=== PATIENT | male | born 1945 | race Caucasian/White ===

== ENCOUNTER 2022-02-04 13:56 | Emergency (ER) | payer MEDICARE, SELFPAY ==
[2022-02-04 14:21] VITALS: PULSE 68; RESP 18; TEMP 36.8; O2SAT 93
--- NOTE | 2022-02-04 18:20 | CTR_ITS ---
PROCEDURE INFORMATION: Exam: CT Abdomen And Pelvis With Contrast Exam date and time: 02/04/2022 7:14 PM Age: 76 years old Clinical indication: Constipation and fever; Additional info: Abd pain TECHNIQUE: Imaging protocol: Computed tomography of the abdomen and pelvis with contrast. Radiation optimization: All CT scans at this facility use at least one of these dose optimization techniques: automated exposure control; mA and/or kV adjustment per patient size (includes targeted exams where dose is matched to clinical indication); or iterative reconstruction. Contrast material: OMNI 350; Contrast volume: 94 ml; Contrast route: INTRAVENOUS (IV); COMPARISON: No relevant prior studies available. RADIATION DOSE METRICS: Total DLP (mGy-cm): 1206.93 FINDINGS: Liver: There are cysts with benign features in the liver the larger of which measures 6 mm in the left hepatic lobe. Follow-up is not necessary. Gallbladder and bile ducts: Normal. No calcified stones. No ductal dilation. Pancreas: Normal. No ductal dilation. Spleen: Normal. No splenomegaly. Adrenal glands: There is a 15 mm focal hypodense mass in the right adrenal gland, consistent in appearance and density with a benign adrenal adenoma. Kidneys and ureters: There are cysts with benign features in the kidneys the larger of which measures 2.9 cm in the left kidney. Stomach and bowel: Moderate stool burden.There are air-fluid levels in the distal colon suggesting mild nonspecific colitis versus other diarrheal illness. Appendix: No evidence of appendicitis. Intraperitoneal space: Unremarkable. No free air. No significant fluid collection. Vasculature: There is scattered atherosclerotic plaque in the aorta and iliac arteries. Lymph nodes: Unremarkable. No enlarged lymph nodes. Urinary bladder: The bladder is partially obscured by artifact. Reproductive: Prostate region is obscured by artifact. Bones/joints: Bilateral total hip replacements. There is resultant beam hardening artifact obscuring adjacent structures. Soft tissues: Unremarkable. CT/CT abdomen pelvis w con* [id number] IMPRESSION: Moderate stool burden.There are air-fluid levels in the distal colon suggesting mild nonspecific colitis versus other diarrheal illness.
[2022-02-04 18:22] LABS: Basophils % 0.3 %; Eosinophils % 0.2 %; Hematocrit 44.5 % (42.0-52.0); Hemoglobin 15.4 g/dL (11.7-16.6); Lymphocytes # 1.3 10^3/uL (0.8-4.8); Lymphocytes % 13.8 %; Mean Corpuscular HGB Conc 34.6 g/dL (30.0-36.0); Mean Corpuscular Hemoglobin 32.8 pg (28.0-34.0); Mean Corpuscular Volume 94.7 fl (80-94); Mean Platelet Volume 9.2 fL (7.4-10.4); Monocytes # 0.7 10^3/uL (0.2-0.9); Monocytes % 7.4 %; Neutrophils # 7.04 10^3/uL (1.8-7.7); Neutrophils % 77.7 %; Nucleated Red Blood Cells % 0 %; Platelet Count 192 10^3/cmm (130-400); Red Cell Distribution Width 12.7 % (12.1-15.1); White Blood Count 9.1 10^3/uL (4.0-10.0)
--- NOTE | 2022-02-04 18:26 | ED_ITS ---
HPI - General Adult General: Chief complaint: Abdominal Pain Stated complaint: right side pain, fever Time Seen by Provider: 02/04/22 18:12 History of Present Illness: Patient is a 76-year-old male with a history of COPD chronically on 2 L oxygen presenting to emergency room with complaints of fever, generalized weakness, and constipation. Patient tells me that for the last 3 weeks he has had diarrhea up until 1 week ago. This week, patient has been having constipation and passing small mount of stool. Patient denies any abdominal pain. Earlier today, patient had a oral temperature 100.2 degrees. Patient came to the emergency room for evaluation. Patient denies any melena/medic easier, nausea/vomiting, or decreased p.o. intake. Patient has no complaints of cough, runny nose sore throat, chest pain or shortness of breath. Patient denies any prior abdominal surgery. Earlier today, patient was seen and evaluated at [facility] they were concerned that patient may have a gallbladder disease as patient had right upper quad abdominal tenderness. Patient currently denies any abdominal tenderness at this time. Onset: 2 weeks of diarrhea, 1 week of constipation, fever x 1 day Duration:ongoing Location:home Severity:moderate Associated symptoms: Deny chest pain, dyspnea, nausea, rash, palpitations or vomiting Review of Systems Const: Denies: fever(s) or chills Eyes: Denies: change in vision ENMT: Denies: mouth pain Card: Denies: chest pain or palpitations Resp: Denies: dyspnea or non-productive cough GI: Denies: abdominal pain, nausea, vomiting or diarrhea : Denies: dysuria Musc: Denies: extremity pain Skin/Breast: Denies: rash or new lesions Neuro: Denies: weakness in extremities Psych: Reports: other (Normal mood) David/Lymph: Denies: easy bruising PFSH ED PFSH: Medical History COPD (chronic obstructive pulmonary disease) Diabetes Social History Smoking and tobacco status: former smoker Alcohol intake: never Substance/Drug Use: never Physical Exam Const: COMMON NORMALS: alert HENMT: COMMON NORMALS: atraumatic HEAD & SCALP: atraumatic MOUTH: moist mucous membranes not abnormal Eye: COMMON NORMALS: EOMs intact bilaterally and conjunctivae normal CONJUNCTIVA: Yes conjunctivae normal Neck/C-Spine: COMMON NORMALS: full ROM and supple Resp: COMMON NORMALS: normal respiratory effort and clear to auscultation bilaterally AUSCULTATION: clear to auscultation bilaterally Cardio: COMMON NORMALS: regular rate RATE: regular rate GI: COMMON NORMALS: Soft to palpation and non-tender PALPATION: Yes Soft to palpation OTHER: No focal TTP. NO guarding rebound, guarding, rigidity. No CVA tenderness to percussion. Neg Mai/Neg McBurney's point tenderness, no suprabupic tenderness to palpation. Extremity: COMMON NORMALS: full ROM Neuro: SENSORIUM/ORIENTATION: Yes alert MOTOR EXAM: No Abnormal motor strength present and Other motor observations present (no focal motor deficits) Psych: COMMON NORMALS: speech normal SPEECH: Yes normal speech MOOD & AFFECT: Yes euthymic mood Course Vital Signs: Vital signs: Vital Signs Temperature 98.2 F 02/04/22 14:21 Pulse Rate 68 02/04/22 14:21 Respiratory Rate 18 02/04/22 14:21 Pulse Oximetry 93 02/04/22 14:21 [facility] - General Adult Medical Decision Making 76-year-old male presents emergency room with complaints of diarrhea followed by constipation and abdominal pain. Patient on physical exam has no focal tenderness palpation. Patient is negative for Mai exam. Patient is afebrile today. AST ALT within normal limit. Rest of labs within normal limit. CT of pelvis showed possible colitis versus diarrheal illness. No other focal findings on imaging. Patient has been able to tolerate p.o. in the emergency room. Received 1 L fluid in the ER. No suspicion for other acute intra-abdominal pathology including SBO, biliary pathology, appendicitis, diverticulitis, or other emergent condition requiring surgery. Rx tylenol PRN abd pain, maalox/pepcid PRN dyspepsia, and zofran PRN nausea/vomiting Disposition: Discharge. Patient counseled regarding diagnostic impression, treatment plan. Patient given ED strict return precautions to return for continuation, worsening, or development of new symptoms. Instructed to f/u w/ PC P regarding symptoms today. Patient verbalized understanding. Lab Data : 02/04/22 18:15 02/04/22 18:15 Radiology Impressions Abdomen/Pelvis CT 02/04/22 18:20 IMPRESSION: Moderate stool burden.There are air-fluid levels in the distal colon suggesting mild nonspecific colitis versus other diarrheal illness. Laboratory Results WBC 9.1 10^3/uL (4.0-10.0) 02/04/22 18:15 RBC 4.70 10^6/uL (4.1-5.3) 02/04/22 18:15 Hgb 15.4 g/dL (11.7-16.6) 02/04/22 18:15 Hct 44.5 % (42.0-52.0) 02/04/22 18:15 MCV 94.7 fl (80-94) H 02/04/22 18:15 MCH 32.8 pg (28.0-34.0) 02/04/22 18:15 MCHC 34.6 g/dL (30.0-36.0) 02/04/22 18:15 RDW 12.7 % (12.1-15.1) 02/04/22 18:15 Plt Count 192 10^3/cmm (130-400) 02/04/22 18:15 MPV 9.2 fL (7.4-10.4) 02/04/22 18:15 Neut % (Auto) 77.7 % 02/04/22 18:15 Lymph % (Auto) 13.8 % 02/04/22 18:15 [place] % (Auto) 7.4 % 02/04/22 18:15 Eos % (Auto) 0.2 % 02/04/22 18:15 Baso % (Auto) 0.3 % 02/04/22 18:15 Neut # (Auto) 7.04 10^3/uL (1.8-7.7) 02/04/22 18:15 Lymph # (Auto) 1.3 10^3/uL (0.8-4.8) 02/04/22 18:15 [place] # (Auto) 0.7 10^3/uL (0.2-0.9) 02/04/22 18:15 Eos # (Auto) 0.0 10^3/uL (0.0-0.8) 02/04/22 18:15 Baso # (Auto) 0.0 10^3/uL (0.0-0.1) 02/04/22 18:15 Nucleated RBC % (auto) 0 % 02/04/22 18:15 Nucleated RBCs # 0.0 /100WBC 02/04/22 18:15 Sodium 135 mmol/L (136-145) L 02/04/22 18:15 Potassium 3.6 mmol/L (3.5-5.1) 02/04/22 18:15 Chloride 98 mmol/L (98-107) 02/04/22 18:15 Carbon Dioxide 26 mmol/L (22-29) 02/04/22 18:15 Anion Gap 14.6 (5-19) 02/04/22 18:15 BUN 15 mg/dL (8-23) 02/04/22 18:15 Creatinine 0.8 mg/dL (0.7-1.2) 02/04/22 18:15 GFR Calculation Not Reportable 02/04/22 18:15 Glucose 121 mg/dL (65-115) H 02/04/22 18:15 Calculated Osmolality 282 mOsm/kg (285-295) L 02/04/22 18:15 Lactate 1.0 mmol/L (0.5-2.2) 02/04/22 18:15 Calcium 8.8 mg/dL (8.5-10.5) 02/04/22 18:15 Total Bilirubin 0.8 mg/dL (0.15-1.2) 02/04/22 18:15 AST 19 U/L (0-40) 02/04/22 18:15 ALT 16 U/L (0-41) 02/04/22 18:15 Alkaline Phosphatase 59 IU/L (40-130) 02/04/22 18:15 Total Protein 6.9 g/dL (6.6-8.7) 02/04/22 18:15 Albumin 4.0 g/dL (3.5-5.2) 02/04/22 18:15 Globulin 2.9 g/dL (1.3-4.6) 02/04/22 18:15 Lipase 33 U/L (13-60) 02/04/22 18:15 Urine Color Yellow (Yellow) 02/04/22 19:00 Urine Appearance Clear (CLEAR) 02/04/22 19:00 Urine pH 6 (5-7) 02/04/22 19:00 Ur Specific [place] 1.020 (1.005-1.030) 02/04/22 19:00 Urine Protein Trace (Negative) 02/04/22 19:00 Urine Glucose (UA) Norm (Normal) 02/04/22 19:00 Urine Ketones 2+ (Negative) H 02/04/22 19:00 Urine Blood Neg (Negative) 02/04/22 19:00 Urine Nitrate Negative (Negative) 02/04/22 19:00 Urine Bilirubin Neg (Negative) 02/04/22 19:00 Urine Urobilinogen Norm mg/dL (Negative) 02/04/22 19:00 Ur Leukocyte Esterase Negative (Negative) 02/04/22 19:00 Urine RBC 0-4 /hpf (0-2) H 02/04/22 19:00 Urine WBC 0-4 /hpf (0-5) H 02/04/22 19:00 Ur Squamous Epith Cells 0-4 /hpf (0-5) H 02/04/22 19:00 Amorphous Sediment Not Reportable 02/04/22 19:00 Urine Bacteria Trace /hpf (NONE) 02/04/22 19:00 Urine Mucus 2+ /hpf 02/04/22 19:00 Imaging Data Other Imaging: Radiologist's impression: [facility] [address] [address] Scan Report Signed Patient: Terry Stallings Unit #: [id number] : 1945 Age/Sex: 76 / M ADM Date: 02/04/22 Loc: ER Room/Bed: Attending Dr: Ordering Provider/Ordering MD: Chetan Fisher MD Date of Service: 02/04/22 Procedure(s): CT abdomen pelvis w con* [id number] Accession Number(s): [id number] Report Number: [id number] PROCEDURE INFORMATION: Exam: CT Abdomen And Pelvis With Contrast Exam date and time: 02/04/2022 7:14 PM Age: 76 years old Clinical indication: Constipation and fever; Additional info: Abd pain TECHNIQUE: Imaging protocol: Computed tomography of the abdomen and pelvis with contrast. Radiation optimization: All CT scans at this facility use at least one of these dose optimization techniques: automated exposure control; mA and/or kV adjustment per patient size (includes targeted exams where dose is matched to clinical indication); or iterative reconstruction. Contrast material: OMNI 350; Contrast volume: 94 ml; Contrast route: INTRAVENOUS (IV);? COMPARISON: No relevant prior studies available. RADIATION DOSE METRICS: Total DLP (mGy-cm): 1206.93 FINDINGS: Liver: There are cysts with benign features in the liver the larger of which measures 6 mm in the left hepatic lobe. Follow-up is not necessary. Gallbladder and bile ducts: Normal. No calcified stones. No ductal dilation. Pancreas: Normal. No ductal dilation. Spleen: Normal. No splenomegaly. Adrenal glands: There is a 15 mm focal hypodense mass in the right adrenal gland, consistent in appearance and density with a benign adrenal adenoma. Kidneys and ureters: There are cysts with benign features in the kidneys the larger of which measures 2.9 cm in the left kidney. Stomach and bowel: Moderate stool burden.There are air-fluid levels in the distal colon suggesting mild nonspecific colitis versus other diarrheal illness. Appendix: No evidence of appendicitis. Intraperitoneal space: Unremarkable. No free air. No significant fluid collection. Vasculature: There is scattered atherosclerotic plaque in the aorta and iliac arteries. Lymph nodes: Unremarkable. No enlarged lymph nodes. Urinary bladder: The bladder is partially obscured by artifact. Reproductive: Prostate region is obscured by artifact. Bones/joints: Bilateral total hip replacements. There is resultant beam hardening artifact obscuring adjacent structures. Soft tissues: Unremarkable. CT/CT abdomen pelvis w con* [id number] IMPRESSION: Moderate stool burden.There are air-fluid levels in the distal colon suggesting mild nonspecific colitis versus other diarrheal illness. ? Dictated By: Diana James MD Signed By: Diana James MD Signed Date/Time: 02/04/222028 DD/ 191 Discharge Plan Discharge Patient Disposition: Home Clinical Impression: Colitis Condition: Stable Prescriptions: New acetaminophen 500 mg tablet 500 mg PO Q6H PRN (Reason: pain) 5 Days Qty: 20 0RF Pepcid 20 mg tablet 20 mg PO BID PRN (Reason: abdominal pain) 10 Days Qty: 20 0RF Reglan 5 mg tablet 5 mg PO BID PRN (Reason: nausea and vomiting) 5 Days Qty: 10 0RF Maalox Advanced 1,000-60 mg tablet,chewable 1 tab PO TID PRN (Reason: abdominal pain) 7 Days Qty: 21 0RF No Action metformin 500 mg tablet 500 mg PO BID 0RF budesonide-formoterol [Symbicort] 80-4.5 mcg/actuation HFA aerosol inhaler 1 inh inhalation BID 0RF Discharge Orders: Discharge ED (Routine); Ordered 02/04/22 Ordered By: Chetan Fisher Referrals: Deysi Perez [employer]SEMBLER [Primary Care Provider] - Discharge Diet: Advance as tolerated Discharge Activity: Increase activity as tolerated Patient Instructions: Constipation (ED), Acute Diarrhea (ED) Activity Restrictions/Additional Instructions: Please come back if you have any worsening abdominal pain, fever or chills, nausea or vomiting, diarrhea, blood in the stool, inability hold down liquid or solids, or any new concerning complaints. Coding Level of Care Code ED [employer] F[employer] Exam Comprehensive
[2022-02-04 18:39] LABS: Alanine Aminotransferase 16 U/L (0-41); Alkaline Phosphatase 59 IU/L (40-130); Anion Gap 14.6 (5-19); Aspartate Amino Transferase 19 U/L (0-40); Blood Urea Nitrogen 15 mg/dL (8-23); Calcium 8.8 mg/dL (8.5-10.5); Carbon Dioxide 26 mmol/L (22-29); Chloride 98 mmol/L (98-107); Globulin 2.9 g/dL (1.3-4.6); Glucose 121 mg/dL (65-115); Lipase 33 U/L (13-60); Osmolality Calculated 282 mOsm/kg (285-295); Potassium 3.6 mmol/L (3.5-5.1); Sodium 135 mmol/L (136-145); Total Bilirubin 0.8 mg/dL (0.15-1.2); Total Protein 6.9 g/dL (6.6-8.7)
[2022-02-04] MEDS: sodium chloride 0.9% 1,000 ML 999 ML IV (19:02)
[2022-02-04 19:18] LABS: Protein Urine Trace (Negative); Urine Appearance Clear (CLEAR); Urine Color Yellow (Yellow); pH Urine 6 (5-7)
[2022-02-04 19:19] LABS: Add Urine Microscopic? YES; Bilirubin Urine Neg (Negative); Blood Urine Neg (Negative); Glucose Urine UA Norm (Normal); Ketones Urine 2+ (Negative); Leukocyte Esterase Urine Negative (Negative); Nitrate Urine Negative (Negative); Urobilinogen Urine Norm (Negative)
[2022-02-04 19:20] LABS: Add Urine Culture? No; Bacteria Urine TRACE /hpf; Mucus Urine 2+ /hpf; RBC Urine 0-4 /hpf (0-2); Squamous Epithelial Cell Urine 0-4 /hpf (0-5); WBC Urine 0-4 /hpf (0-5)
[2022-02-04] MEDS: iohexol 350 mg/mL 100 mL Btl IV (19:26)
[2022-02-04] MEDS: lidocaine 2% viscous 15 ML, aluminum-mag hydrox-simethicon 30 ML, sucralfate oral liq 1 GM PO (20:46)
[2022-02-04 21:27] LABS: Adenovirus Not Detected (NOT DETECT); Chlamydia Pneumoniae Not Detected (NOT DETECT); Coronavirus 229E,HKU1,NL63,OC4 Not Detected (NOT DETECT); Human Metapneumovirus Not Detected (NOT DETECT); Human Rhinovirus/Enterovirus Not Detected (NOT DETECT); Influenza A Not Detected (NOT DETECT); Influenza A H1 Not Detected (NOT DETECT); Influenza A H1-2009 Not Detected (NOT DETECT); Influenza A H3 Not Detected (NOT DETECT); Influenza B Not Detected (NOT DETECT); Mycoplasma Pneumoniae Not Detected (NOT DETECT); Parainfluenza Virus Type 1 Not Detected (NOT DETECT); Parainfluenza Virus Type 2 Not Detected (NOT DETECT); Parainfluenza Virus Type 3 Not Detected (NOT DETECT); Parainfluenza Virus Type 4 Not Detected (NOT DETECT); Respiratory Syncytial Virus A Not Detected (NOT DETECT); Respiratory Syncytial Virus B Not Detected (NOT DETECT); SARS-COV-2 Not Detected (NOT DETECT)
== END 2022-02-04 20:48 | disposition home or self-care (01) ==
PROVIDERS: Nurse Practitioner Family; Emergency Provider Emergency Medicine; PCP Nurse Practitioner
DX: K52.9 Noninfective gastroenteritis and colitis, unspecified (principal); Z79.84 Long term (current) use of oral hypoglycemic drugs; J44.9 Chronic obstructive pulmonary disease, unspecified; E11.9 Type 2 diabetes mellitus without complications; Z87.891 Personal history of nicotine dependence; Z20.822 Contact with and (suspected) exposure to COVID-19
CPT/HCPCS: 74177; 80053; 81001; 83605; 83690; 85025; 87635; 96360; 99284; J7030; Q9967